=== PATIENT | female | born 1945 | race Caucasian/White ===

== ENCOUNTER 2016-06-28 10:58 | Outpatient (CLI) | payer MEDICARE ==
[2016-06-28 12:09] LABS: #Basophils 0.1 thou/uL (0.0-0.2); #Eosinphils 0.2 thou/uL (0.0-0.7); #Lymphocytes 1.6 thou/uL (1.20-3.40); #Monocytes 0.4 thou/uL (0.11-0.59); #Neutrophils 3.5 thou/uL (1.40-6.50); %Basophils 1.2 % (0.0-1.0); %Eosinophils 3.6 % (0.0-10.0); %Lymphocytes 27.2 % (21.0-51.0); %Monocytes 6.6 % (0.0-10.0); %Neutrophils 61.3 % (42.0-75.0); Hemoglobin 13.1 g/dL (12.0-16.0); Mean Corpuscular HGB CONC 31.7 g/dL (32.0-36.0); Mean Corpuscular Hemoglobin 30.2 pg (27.0-31.0); Mean Corpuscular Volume 95.3 fl (81.0-99.0); Mean Platelet Volume 6.5 fL (7.4-10.4); Platelet Count 245 thou/uL (130-400); RBC Distribution Width 12.7 % (11.5-14.5); Red Blood Cell (RBC) Count 4.34 mill/uL (4.20-5.40); White Blood Cell (WBC) Count 5.7 thou/uL (4.8-10.8)
[2016-06-28 12:22] LABS: Hemoglobin A1c 11.3 % (4.0-6.0)
[2016-06-28 12:34] LABS: ALT (SGPT) 15 U/L (8-55); AST (SGOT) 14 U/L (5-34); Albumin 3.9 g/dL (3.4-4.8); Alkaline Phosphatase 74 U/L (40-150); Anion Gap 16 mmol/L (10-20); BUN (Urea Nitrogen) 17 mg/dL (9.8-20.1); Bilirubin, Direct 0.2 mg/dL (0.1-0.3); Bilirubin, Total 0.6 mg/dL (0.2-1.2); Calc. Creatinine Clearance 0 mL/min (70-130); Calcium 9.3 mg/dL (7.8-10.44); Carbon Dioxide 24 mmol/L (23-31); Cardiac Risk 4.3 (Less than 4.5); Chloride 104 mmol/L (98-107); Cholesterol 188 mg/dl (< 200 Desired); Estimated GFR-MDRD 53; Glucose 365 mg/dL (83-110); HDL Cholesterol 44 mg/dL (>60 Neg Risk); LDL Cholesterol, Calculated 120 mg/dL; Potassium 4.3 mmol/L (3.5-5.1); Protein, Total 7.5 g/dL (6.0-8.3); Sodium 140 mmol/L (136-145); Triglycerides 118 mg/dL (Less than 150)
[2016-06-29 16:19] LABS: Creatinine, Urine 122.42 mg/dL (47-110); Microalbumin Urine 1.3 mg/dL (0.5-50.0); Microalbumin/Creat Ratio 10.6 mg/g (Less than 30)
== END 2016-06-28 10:59 | disposition home or self-care (01) ==
LOC: NAV LAB 10:58
PROVIDERS: ATTEND Family Medicine
DX: E11.9 Type 2 diabetes mellitus without complications (principal); Z79.4 Long term (current) use of insulin; Z79.899 Other long term (current) drug therapy
CPT/HCPCS: 36415; 80048; 80061; 80076; 82043; 83036; 84443; 85025

== ENCOUNTER 2017-05-13 10:17 | Outpatient (CLI) | payer MEDICARE | END 2017-05-13 10:18 | disposition home or self-care (01) | LOC: NAV DTY OP 10:17 | PROVIDERS: ATTEND Family Medicine | DX: E11.9 Type 2 diabetes mellitus without complications (principal) | CPT/HCPCS: 97802 ==

== ENCOUNTER 2018-05-04 14:54 | Outpatient (CLI) | payer MEDICARE ==
--- NOTE | 2018-05-04 15:30 | RAD ---
RIGHT SHOULDER 3 VIEWS: Date: 05/04/18 HISTORY: Pain right shoulder. FINDINGS: There are degenerative changes present. Mild spurring from the humeral head and spurring from the AC joint. No fracture or dislocation. IMPRESSION: Mild degenerative changes at the shoulder. No acute process. POS: TAPAN
== END 2018-05-04 14:55 | disposition home or self-care (01) ==
LOC: NAV RAD 14:54
PROVIDERS: ATTEND Family Medicine
DX: M25.511 Pain in right shoulder (principal); M19.011 Primary osteoarthritis, right shoulder

== ENCOUNTER 2019-04-28 14:49 | Inpatient (IN) | payer MEDICARE ==
[2019-04-28] MEDS ORDERED: traMADol HCl 50 MG TAB PO SCH (16:30)
[2019-04-28] MEDS ORDERED: Acetaminophen 500 MG TAB PO SCH (16:30)
[2019-04-28] MEDS: Gabapentin 300 MG CAP PO SCH (20:59)
--- NOTE | 2019-04-28 21:17 | HP ---
HISTORY OF PRESENT ILLNESS: Ms. Joyner is a very pleasant 74-year-old white female, who presented to the emergency room at [facility] with abdominal pain. She was admitted to the hospital, seen in consultation by Dr. Jonah Quevedo, and unfortunately had a small bowel obstruction. It did not clear with small bowel run through and she ended up going to the surgical suite. Dr. Quevedo removed 55 cm to 25 inches of small bowel. Anastomosis was accomplished well, but postoperatively, she had a prolonged ileus. She finally has started passing gas and being able to tolerate some food. She is extremely weak and barely gets up and moves at this time. Previously, she was very active and would walk as far she needed to walk for anything. It was felt that she would significantly benefit from inpatient Physical Therapy and Occupational Therapy, so she was transferred to [facility] for therapy. PAST MEDICAL HISTORY: Reveals the patient has, 1. Diabetes. 2. Ulcerative colitis with J-pouch. 3. Psoriasis. 4. 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 5. Peripheral neuropathy. 6. Anxiety and depressive disorder. 7. Arthritis. 8. Allergic rhinitis. 9. Hypertension. 10. Chronic kidney disease, stage 3. 11. Anemia of chronic disease. PAST SURGICAL HISTORY: 1. Recent removal of 55 cm small bowel by Dr. Jonah Quevedo. 2. Tonsillectomy in 1947. 3. Hysterectomy in 1981. 4. Abdominoplasty with lysis of adhesions in 1991. 5. Abdominal colectomy with J-pouch placement in 1995. 6. Cholecystectomy in 2014. 7. Left ring finger Dupuytren's contracture in 2016. 8. Breast biopsy with lumpectomy secondary to breast cancer on 09/16/2016. FAMILY HISTORY: Reveals the patient's father at age 77 of an aneurysm. The patient's mother at age 84, breast cancer and COPD. The patient has an older brother, who has unmanaged diabetes. Also has a history of prostate cancer. The patient has a sibling, who has suspected bipolar. Maternal grandmother had breast cancer. SOCIAL HISTORY: Reveals the patient quit smoking in 1980. She has smoked 2 packs a day for several years, but then quit. The patient does not drink. ALLERGIES: REVEALS THE PATIENT IS ALLERGIC TO PENICILLIN AND DEMEROL. PRESENT MEDICATIONS: 1. The patient is on lisinopril 40 mg daily. 2. The patient is on hydrochlorothiazide 25 mg daily. 3. The patient takes Lantus 16 to 20 units, but presently is off because she has been hypoglycemic. 4. The patient is on metformin extended release 500 mg with breakfast and 1000 mg at supper. 5. The patient is on pioglitazone 75 mg daily. 6. Gabapentin 300 mg at bedtime. 7. Anastrozole 1 mg daily. 8. Pristiq 50 mg extended release daily. 9. Acitretin 10 mg with meals daily. 10. Naproxen one with breakfast, one with supper. 11. Fluticasone nasal spray one or two sprays each nostril daily at bedtime. REVIEW OF SYSTEMS: CONSTITUTIONAL: The patient denies any fever, chills, or night sweats. She denies any head problems including headaches, change in vision, or change in hearing. HEENT: The patient denies any significant rhinorrhea or facial tenderness. RESPIRATORY: The patient denies cough, cold, congestion, hemoptysis, or any productive sputum or cough. CARDIOVASCULAR: The patient denies PND, edema, dyspnea on exertion, chest pain, orthopnea, or claudication. GI: The patient denies nausea, vomiting, or diarrhea, but admits to slight bloody stools, she was obstructed. The patient has no colon left due to colectomy for her ulcerative colitis. : The patient denies urgency, frequency, dysuria, or incontinence. MUSCULOSKELETAL: The patient admits to weakness, but no significant joint swelling, joint pain, or significant stiffness. SKIN: The patient denies skin lesions, or jaundice or any skin rashes. PSYCHIATRIC: The patient has had quite a bit of stress. Has had a history of anxiety and depressive disorder. PHYSICAL EXAMINATION: GENERAL: This is a well-developed, well-nourished, very pleasant 74-year-old white female, in no apparent distress at this time. HEENT: Reveals normocephalic and nontraumatic cranium. The pupils are equally round and reactive. Extraocular movements are intact. Nose and throat are slightly dry, but clear. NECK: Supple without masses, nodes, or bruits. CHEST: Clear to auscultation. No rales, rhonchi, wheezes, or cough is noted. HEART: Reveals a regular rate and rhythm with a 1/6 systolic murmur. ABDOMEN: Obese, soft, nontender without organomegaly. Normal bowel sounds are noted in all 4 quadrants. No rebound or guarding is noted. Midline incision is noted with a wound VAC in place, which is very small. GENITOURINARY: Deferred. EXTREMITIES: Reveal no clubbing or cyanosis with minimal trace edema. NEUROLOGIC: The patient has no focal deficits. ASSESSMENT: 1. Status post small bowel obstruction and status post removal of 25 inches of small intestines with end-to-end anastomosis by Dr. Jonah Quevedo. 2. Diabetes type 2, which has been fluctuating. 3. Hypertension, which has been fluctuating. 4. Diabetic neuropathy. 5. Diabetic nephropathy. 6. Chronic kidney disease, stage 3. 7. History of infiltrating ductal carcinoma supposedly in remission. 8. Poor appetite. 9. Slightly dehydrated. 10. Prolonged ileus, which is much improved. 11. Ulcerative colitis with J-pouch. 12. Anemia of chronic disease. PLAN: 1. The patient is admitted to [facility] for physical therapy and occupational therapy. 2. We will aggressively try to control her diabetes. 3. We will continue to monitor her blood pressure closely and adjust medications as needed. 4. We will encourage the patient to eat well. 5. The patient will be able to walk 300 to 500 feet prior to being discharged. Job ID: [id number]
[2019-04-29] MEDS ORDERED: Ondansetron ODT 4 MG TAB PO PRN (01:37)
[2019-04-29 05:39] LABS: #Basophils 0.1 thou/uL (0.0-0.2); #Eosinphils 0.1 thou/uL (0.0-0.7); #Monocytes 0.5 thou/uL (0.11-0.59); #Neutrophils 3.6 thou/uL (1.40-6.50); %Basophils 1.7 % (0.0-1.0); %Eosinophils 1.4 % (0.0-10.0); %Lymphocytes 19.5 % (21.0-51.0); %Monocytes 9.6 % (0.0-10.0); %Neutrophils 67.8 % (42.0-75.0); Hemoglobin 7.4 g/dL (12.0-16.0); Mean Corpuscular HGB CONC 31.5 g/dL (32.0-36.0); Mean Corpuscular Hemoglobin 30.8 pg (27.0-31.0); Mean Corpuscular Volume 97.9 fL (78.0-98.0); Mean Platelet Volume 6.7 fL (7.4-10.4); Platelet Count 453 thou/uL (130-400); RBC Distribution Width 15.1 % (11.5-14.5); Red Blood Cell (RBC) Count 2.39 mill/uL (4.20-5.40); White Blood Cell (WBC) Count 5.3 thou/uL (4.8-10.8)
[2019-04-29 05:55] LABS: ALT (SGPT) 15 U/L (8-55); AST (SGOT) 16 U/L (5-34); Albumin 2.7 g/dL (3.4-4.8); Alkaline Phosphatase 81 U/L (40-110); Anion Gap 12 mmol/L (10-20); BUN (Urea Nitrogen) 13 mg/dL (9.8-20.1); Bilirubin, Total 0.3 mg/dL (0.2-1.2); Calc. Creatinine Clearance 90 mL/min (70-130); Carbon Dioxide 28 mmol/L (23-31); Chloride 103 mmol/L (98-107); Estimated GFR-MDRD 76; Globulin 3.2 g/dL (2.4-3.5); Glucose 97 mg/dL (83-110); Potassium 4.1 mmol/L (3.5-5.1); Protein, Total 5.9 g/dL (6.0-8.3); Sodium 139 mmol/L (136-145)
[2019-04-29 06:11] LABS: Bilirubin Negative (Negative); Blood, Urine Trace (Negative); Clarity Clear (Clear); Glucose, Urine (Dipstick) Negative (Negative); Leukocyte Negative (Negative); Nitrite Negative (Negative); Protein, Urine (Dipstick) Negative (Neg-Trace); Urobilinogen 0.2 mg/dL (Less than 2)
[2019-04-29 06:44] LABS: Bacteria/HPF None Seen HPF (None Seen); RBC/HPF 0-3 HPF (0-3); Squamous Epithelial 0-3 HPF (0-3); WBC/HPF None Seen HPF (0-3)
[2019-04-29] MEDS: Hydrochlorothiazide 25 MG TAB PO SCH (08:17)
[2019-04-29] MEDS: Anastrozole 1 MG TAB PO SCH (08:17)
[2019-04-29] MEDS: Lisinopril 20 MG TAB PO SCH (08:17)
[2019-04-29] MEDS: metFORMIN 500 MG TAB PO SCH ×5 (08:17→12:25)
[2019-04-29] MEDS: Venlafaxine HCl XR 75 MG CAP PO SCH (08:17)
[2019-04-29] MEDS: ACITRETIN 10 MG PO SCH (08:18)
[2019-04-29] MEDS: Pioglitazone HCl 15 MG TAB PO SCH (08:18)
[2019-04-29] MEDS: traMADol HCl 50 MG TAB PO PRN ×3 (08:55→23:34)
[2019-04-29] MEDS: Acetaminophen 500 MG TAB PO PRN ×3 (08:55→23:34)
[2019-04-29] MEDS: Mometasone Furoate 120 PUFF 220 MCG INH SCH (17:47)
[2019-04-29] MEDS: Gabapentin 300 MG CAP PO SCH (20:54)
--- NOTE | 2019-04-29 23:21 | PRG ---
DATE OF SERVICE: 04/29/2019 SUBJECTIVE: Ms. Joyner is a very pleasant 74-year-old white female, who presented to the emergency room at [facility] with abdominal pain. She has small bowel obstruction that did not resolve. She was taken to the surgical suite by Dr. Quevedo, who had to remove 55 cm, which is 25 inches of small bowel. Anastomosis was accomplished, she did well. Postoperatively, she had difficulty with prolonged ileus. She eventually resolved that but it took approximately a week and a half. She now is extremely weak and barely able to walk and transfer to inpatient Physical Therapy and Occupational Therapy at [facility]. OBJECTIVE: VITAL SIGNS: Today reveal blood pressure this morning was 129/81, pulse 90, respirations 16, O2 saturation 90% to 91% on room air, and T-max 98.6. LABORATORY DATA: Today reveals sugar of 105 fasting, 166 before lunch, 155 before supper, 200 before bedtime. PHYSICAL EXAMINATION: GENERAL: This is a well-developed, well-nourished, slightly obese white female, in no apparent distress at this time. HEENT: Reveals normocephalic and nontraumatic cranium. Pupils are equal, round, and reactive. Extraocular movements are intact. Nose and throat are slightly dry. NECK: Supple without masses, nodes, or bruits. CHEST: Clear to auscultation. No rales, rhonchi, or wheezes are heard. HEART: Reveals a regular rate and rhythm without murmurs, gallops, or rubs. ABDOMEN: Soft, nontender without organomegaly. Normal bowel sounds are noted in all 4 quadrants. No rebound or guarding is noted. Midline incision still looks good. Wound VAC still in place. GENITOURINARY: Deferred. EXTREMITIES: Reveal no clubbing, cyanosis, or edema with normal trace edema. NEUROLOGIC: The patient has no focal deficits. ASSESSMENT: 1. Small-bowel obstruction status post removal of 25 inches with end-to-end anastomosis done by Dr. Jonah Quevedo. 2. Hypertension. 3. Diabetes type 2. 4. Diabetic neuropathy. 5. Diabetic nephropathy. 6. Chronic kidney disease, stage 3. 7. History of infiltrating ductal carcinoma supposedly in remission. 8. Poor appetite. 9. Slightly dehydrated. 10. Prolonged ileus, which has now improved. 11. Ulcerative colitis with J pouch. 12. Anemia of chronic disease. 13. Generalized weakness. PLAN: 1. The patient is admitted to [facility] for continued physical therapy and occupational therapy. 2. Continue to monitor the patient's blood pressure closely. 3. Continue to monitor the patient's diabetes with Accu-Cheks a.c. and at bedtime. 4. Encourage the patient to eat well. 5. Stress ulcer prophylaxis. 6. Decubitus precautions. 7. DVT prophylaxis per Primary Service. 8. Physical therapy and occupational therapy to be continued. Job ID: [id number]
[2019-04-30] MEDS: traMADol HCl 50 MG TAB PO PRN ×4 (05:33→21:40)
[2019-04-30] MEDS: Acetaminophen 500 MG TAB PO PRN ×4 (05:34→21:40)
[2019-04-30] MEDS: Hydrochlorothiazide 25 MG TAB PO SCH (08:58)
[2019-04-30] MEDS: Pioglitazone HCl 15 MG TAB PO SCH (08:58)
[2019-04-30] MEDS: Anastrozole 1 MG TAB PO SCH (08:58)
[2019-04-30] MEDS: Venlafaxine HCl XR 75 MG CAP PO SCH (08:58)
[2019-04-30] MEDS: Lisinopril 20 MG TAB PO SCH (08:59)
[2019-04-30] MEDS: metFORMIN 500 MG TAB PO SCH ×2 (09:02→11:27)
[2019-04-30] MEDS: ACITRETIN 10 MG PO SCH (14:13)
[2019-04-30] MEDS: Gabapentin 300 MG CAP PO SCH (21:40)
[2019-04-30] MEDS: Mometasone Furoate 120 PUFF 220 MCG INH SCH (21:41)
[2019-05-01] MEDS: Venlafaxine HCl XR 75 MG CAP PO SCH (08:52)
[2019-05-01] MEDS: Anastrozole 1 MG TAB PO SCH (08:52)
[2019-05-01] MEDS: Pioglitazone HCl 15 MG TAB PO SCH (08:52)
[2019-05-01] MEDS: Acetaminophen 500 MG TAB PO PRN ×2 (08:52→21:02)
[2019-05-01] MEDS: metFORMIN 500 MG TAB PO SCH ×2 (08:53→11:36)
[2019-05-01] MEDS: Lisinopril 20 MG TAB PO SCH (08:53)
[2019-05-01] MEDS: Hydrochlorothiazide 25 MG TAB PO SCH (08:53)
[2019-05-01] MEDS: traMADol HCl 50 MG TAB PO PRN ×2 (08:54→21:02)
[2019-05-01] MEDS: ACITRETIN 10 MG PO SCH (09:03)
[2019-05-01] MEDS: Mometasone Furoate 120 PUFF 220 MCG INH SCH (19:24)
[2019-05-01] MEDS: Gabapentin 300 MG CAP PO SCH (21:02)
[2019-05-02 05:46] LABS: ALT (SGPT) 11 U/L (8-55); AST (SGOT) 15 U/L (5-34); Alkaline Phosphatase 77 U/L (40-110); Anion Gap 14 mmol/L (10-20); BUN (Urea Nitrogen) 11 mg/dL (9.8-20.1); Bilirubin, Total 0.2 mg/dL (0.2-1.2); Calc. Creatinine Clearance 90 mL/min (70-130); Calcium 8.5 mg/dL (7.8-10.44); Carbon Dioxide 30 mmol/L (23-31); Chloride 100 mmol/L (98-107); Estimated GFR-MDRD 74; Globulin 3.3 g/dL (2.4-3.5); Glucose 126 mg/dL (83-110); Potassium 3.8 mmol/L (3.5-5.1); Protein, Total 6.3 g/dL (6.0-8.3); Sodium 140 mmol/L (136-145)
[2019-05-02 05:49] LABS: #Basophils 0.1 thou/uL (0.0-0.2); #Eosinphils 0.1 thou/uL (0.0-0.7); #Lymphocytes 1.2 thou/uL (1.20-3.40); #Monocytes 0.6 thou/uL (0.11-0.59); %Basophils 2.6 % (0.0-1.0); %Lymphocytes 22.9 % (21.0-51.0); %Monocytes 12.5 % (0.0-10.0); Hemoglobin 8.1 g/dL (12.0-16.0); Mean Corpuscular Hemoglobin 31.3 pg (27.0-31.0); Mean Platelet Volume 6.5 fL (7.4-10.4); Platelet Count 458 thou/uL (130-400); RBC Distribution Width 14.4 % (11.5-14.5); Red Blood Cell (RBC) Count 2.59 mill/uL (4.20-5.40); White Blood Cell (WBC) Count 5.1 thou/uL (4.8-10.8)
--- NOTE | 2019-05-02 06:56 | PRG ---
DATE OF SERVICE: 05/01/2019 Patient of Senthil Kayleigh Gunn. SUBJECTIVE: The patient is a very pleasant 74-year-old white female, status post recent small bowel obstruction requiring surgical removal of large amount of small bowel with complications of postoperative ileus and significant deconditioning and malnutrition. She is doing much better now and in [facility], is eating well and states she has no complaints. Feels she is getting stronger with minimal abdominal pain. OBJECTIVE: VITAL SIGNS: Temperature is 99.1, pulse is 83, respirations are 20, O2 saturation is 97% on room air, blood pressure is 144/67. LUNGS: Clear. CARDIAC: Shows regular rhythm. ABDOMEN: Soft with minimal tenderness. SKIN AND EXTREMITIES: Showed no edema. LABORATORY DATA: Most recent laboratory showed hemoglobin of 7.4, white count of 5300. Accu-Cheks have remained stable at 122 to 178. ASSESSMENT: 1. Resolving postoperative ileus, status post small bowel resection with end-to-end anastomosis for small bowel obstruction. 2. Hypertension, controlled to goal. 3. Type 2 diabetes, controlled to goal. 4. Chronic kidney disease, stage 3 with most recent creatinine 0.75 and GFR 76. 5. History of ulcerative colitis with J-pouch. 6. History of anemia of chronic disease. PLAN: 1. Continue PT, OT. 2. Repeat labs in the a.m. 3. Encourage the patient to eat well. She states she is doing much better. 4. Continue stress ulcer prophylaxis and DVT prophylaxis. Job ID: [id number]
[2019-05-02] MEDS: Anastrozole 1 MG TAB PO SCH (08:51)
[2019-05-02] MEDS: Hydrochlorothiazide 25 MG TAB PO SCH (08:52)
[2019-05-02] MEDS: Venlafaxine HCl XR 75 MG CAP PO SCH (08:52)
[2019-05-02] MEDS: metFORMIN 500 MG TAB PO SCH ×2 (08:52→12:07)
[2019-05-02] MEDS: Pioglitazone HCl 15 MG TAB PO SCH (08:52)
[2019-05-02] MEDS: Lisinopril 20 MG TAB PO SCH (08:53)
[2019-05-02] MEDS: ACITRETIN 10 MG PO SCH (11:02)
--- NOTE | 2019-05-02 19:01 | PRG ---
DATE OF SERVICE: 05/02/[address] Carmine Gunn. SUBJECTIVE: The patient feels well and up to the bathroom, having minimal abdominal pain. She is eating well. OBJECTIVE: VITAL SIGNS: Blood pressure is 142/76, temperature is 98, pulse 80, respirations 18, O2 sats 94% on room air. LUNGS: Clear. CARDIAC: Regular rhythm. ABDOMEN: Soft, nontender. Midline incision is healing well with wound VAC in place. SKIN/EXTREMITIES: No edema. LABORATORY DATA: White count 5100, hematocrit 25, hemoglobin 8.1. Sodium 140, potassium 3.8, chloride 100, bicarb 30, BUN 11, creatinine 0.76, glucose 126, calcium 8.5. Accu-Cheks 158 and 204, albumin 3.0, which is up from 2.7 two days previously. ASSESSMENT: 1. Resolving small-bowel obstruction and partial removal 25 inches with small intestine and end-to-end anastomosis, healing well. 2. Type 2 diabetes. Fair control with Accu-Cheks ranging from 158 to 186. 3. Malnutrition, improving slowly. 4. Deconditioning, improving steadily. 5. Ulcerative colitis, asymptomatic. 6. Hypertension, fluctuating. 7. resolved. PLAN: 1. Continue PT and OT. 2. Continue wound care. 3. Continue Accu-Cheks to monitor and titrate and control diabetes. 4. Continue to monitor her blood pressure fluctuating. Job ID: [id number]
[2019-05-02] MEDS: traMADol HCl 50 MG TAB PO PRN (20:59)
[2019-05-02] MEDS: Gabapentin 300 MG CAP PO SCH (20:59)
[2019-05-02] MEDS: Acetaminophen 500 MG TAB PO PRN (20:59)
[2019-05-02] MEDS: Mometasone Furoate 120 PUFF 220 MCG INH SCH (21:02)
[2019-05-03] MEDS: Venlafaxine HCl XR 75 MG CAP PO SCH (08:36)
[2019-05-03] MEDS: Anastrozole 1 MG TAB PO SCH (08:36)
[2019-05-03] MEDS: Hydrochlorothiazide 25 MG TAB PO SCH (08:36)
[2019-05-03] MEDS: metFORMIN 500 MG TAB PO SCH ×2 (08:36→11:25)
[2019-05-03] MEDS: Lisinopril 20 MG TAB PO SCH (08:36)
[2019-05-03] MEDS: Pioglitazone HCl 15 MG TAB PO SCH (08:37)
[2019-05-03] MEDS ORDERED: metFORMIN 500 MG TAB PO SCH ×2 (09:42→09:45)
[2019-05-03] MEDS: ACITRETIN 10 MG PO SCH (11:00)
--- NOTE | 2019-05-03 17:51 | PRG ---
DATE OF SERVICE: 05/03/2019 SUBJECTIVE: Ms. Joyner is a very pleasant 74-year-old white female, who [facility]bowel [facility]. She was taken to the surgical suite by Dr. Quevedo to remove 55 cm and did an anastomosis. Postoperatively, she did well, but had a prolonged ileus. She eventually resolved this, but has had a problem with eating and is extremely weak. She was transferred to [facility] for physical therapy, occupational therapy, and pain management. OBJECTIVE: VITAL SIGNS: Reveal blood pressure 190/78, pulse 82, respirations 20, O2 saturation 94% to 96% on room air, T-max 98.2. GENERAL: This is a well-developed, well-nourished, very pleasant 74-year-old slightly obese white female, in no apparent distress at this time. HEENT: Reveals normocephalic and nontraumatic cranium. Pupils are equal, round, and reactive. Extraocular movements are intact. Nose and throat are slightly dry, but clear. NECK: Supple without masses, nodes, or bruits. CHEST: Clear to auscultation. No rales, rhonchi, or wheezes are heard. HEART: Reveals a regular rate and rhythm without murmurs, gallops, or rubs. ABDOMEN: Soft, nontender without any pain. Normal bowel sounds noted. No rebound or guarding is noted. Midline incision still looks good. Wound VAC has been replaced, still working well. GENITOURINARY: Deferred. EXTREMITIES: Reveal no clubbing, cyanosis, or edema. NEUROLOGIC: The patient has no focal deficits. LABORATORY DATA: Over the weekend revealed a hemoglobin of 8.1, hematocrit 25.3, with a platelet count of 458,000. Chemistry revealed a sodium of 140, potassium 3.8, BUN 11, creatinine 0.76. Sugar is 126. Liver enzymes normal at 15 AST and 11 ALT. ASSESSMENT: 1. Small-bowel obstruction, status post removal of 25 inches with an end-to-end anastomosis done by Dr. Jonah Quevedo. 2. Hypertension. 3. Diabetes type 2. 4. Diabetic neuropathy. 5. Wound VAC over abdominal incision. 6. Diabetic nephropathy. 7. Chronic kidney disease, stage 3. 8. Appetite much improved. 9. Slightly dehydrated. 10. Prolonged ileus, improved. 11. Ulcerative colitis with a J-pouch. 12. Anemia of chronic disease. 13. Generalized weakness. PLAN: 1. Continue physical therapy and occupational therapy. 2. Continue wound VAC until better healed. 3. Continue to monitor the patient's blood pressure closely. 4. Monitor the patient's diabetes with Accu-Cheks a.c. and at bedtime. 5. Continue to encourage the patient to eat well. 6. Stress ulcer prophylaxis. 7. Decubitus precautions. 8. DVT prophylaxis. 9. Physical therapy and occupational therapy. Job ID: [id number]
[2019-05-03] MEDS: traMADol HCl 50 MG TAB PO PRN (21:26)
[2019-05-03] MEDS: Gabapentin 300 MG CAP PO SCH (21:26)
[2019-05-03] MEDS: Acetaminophen 500 MG TAB PO PRN (21:27)
[2019-05-03] MEDS: Mometasone Furoate 120 PUFF 220 MCG INH SCH (23:48)
[2019-05-04] MEDS: Hydrochlorothiazide 25 MG TAB PO SCH (08:32)
[2019-05-04] MEDS: Venlafaxine HCl XR 75 MG CAP PO SCH (08:32)
[2019-05-04] MEDS: Anastrozole 1 MG TAB PO SCH (08:32)
[2019-05-04] MEDS: Lisinopril 20 MG TAB PO SCH (08:33)
[2019-05-04] MEDS: Pioglitazone HCl 15 MG TAB PO SCH (08:33)
[2019-05-04] MEDS: metFORMIN 500 MG TAB PO SCH ×2 (08:33→11:04)
[2019-05-04] MEDS: ACITRETIN 10 MG PO SCH (08:34)
--- NOTE | 2019-05-04 11:08 | PRG ---
DATE OF SERVICE: 05/04/2019 SUBJECTIVE: Ms. Joyner is a very pleasant 74-year-old white female, who presented to [facility] with a small bowel obstruction. Taken to the surgical suite by Dr. Quevedo and he took out 55 cm small intestine that had multiple adhesions and did an anastomosis. Postoperatively, she did well, but she had a prolonged ileus. She eventually was stabilized and was transferred to [facility] for PT and OT and Pain Management. Vital signs today reveal the patient's blood pressure has remained elevated in the last few days. It fluctuated from 146/64 to 190/78. We will start her on some amlodipine 5 mg every evening. PHYSICAL EXAMINATION: GENERAL: This is a well-developed, well-nourished, very pleasant white female, in no apparent distress at this time. HEENT: Reveals normocephalic and nontraumatic cranium. Pupils are equally round and reactive. Extraocular movements are intact. Nose and throat are slightly dry. NECK: Supple without masses, nodes, or bruits. CHEST: Clear to auscultation. No rales, rhonchi, or wheezes are heard. HEART: Reveals a regular rate and rhythm without murmurs, gallops, or rubs. Midline incision has wound VAC over it and working well. GENITOURINARY: Deferred. EXTREMITIES: Reveal no clubbing, cyanosis, or edema. NEUROLOGIC: The patient has no focal deficits. ASSESSMENT: 1. Small bowel obstruction, status post removal of 25 inches with an end-to-end anastomosis of the small bowel by Dr. Jonah Quevedo. 2. Diabetes type 2, stable. 3. Hypertension. 4. Diabetic neuropathy. 5. Wound VAC over abdominal incision. 6. Diabetic nephropathy. 7. Chronic kidney disease, stage 3. 8. Appetite, much improved. 9. Slightly dehydrated. 10. Prolonged ileus, resolved. 11. Ulcerative colitis with J-pouch. 12. Anemia of chronic disease. 13. Generalized weakness. PLAN: 1. Continue wound VAC until healed a little further. 2. Continue to monitor the patient's blood pressure closely. 3. Continue Accu-Cheks before meals and at bedtime. 4. Continue to encourage the patient to eat well. 5. Stress ulcer prophylaxis. 6. Decubitus precautions. 7. DVT prophylaxis. 8. Physical Therapy and Occupational Therapy. Job ID: [id number]
[2019-05-04] MEDS: Acetaminophen 500 MG TAB PO PRN (21:09)
[2019-05-04] MEDS: Gabapentin 300 MG CAP PO SCH (21:09)
[2019-05-04] MEDS: traMADol HCl 50 MG TAB PO PRN (21:09)
[2019-05-04] MEDS: Amlodipine 5 MG TAB PO SCH (21:09)
[2019-05-05] MEDS: Mometasone Furoate 120 PUFF 220 MCG INH SCH ×2 (01:25→17:58)
[2019-05-05] MEDS: Calcium Carbonate 500 MG ChewTAB PO PRN (03:55)
[2019-05-05] MEDS: Pioglitazone HCl 15 MG TAB PO SCH (09:01)
[2019-05-05] MEDS: Lisinopril 20 MG TAB PO SCH (09:01)
[2019-05-05] MEDS: Anastrozole 1 MG TAB PO SCH (09:02)
[2019-05-05] MEDS: Hydrochlorothiazide 25 MG TAB PO SCH (09:03)
[2019-05-05] MEDS: Venlafaxine HCl XR 75 MG CAP PO SCH (09:04)
[2019-05-05] MEDS: ACITRETIN 10 MG PO SCH (09:04)
[2019-05-05] MEDS: metFORMIN 500 MG TAB PO SCH ×2 (09:05→12:37)
--- NOTE | 2019-05-05 15:17 | PRG ---
DATE OF SERVICE: 05/05/2019 SUBJECTIVE: Ms. Joyner is a very pleasant 74-year-old white female, who presented to [facility] with a small bowel obstruction. She was taken to the surgical suite after several days of observation when it did clear by Dr. Jonah Quevedo. He took out 55 cm of small intestine, which had multiple adhesions. He did an end-to-end anastomosis and postoperatively she did well. She unfortunately had a prolonged ileus, spent 10-14 days in the hospital. She eventually stabilized, now transferred to [facility] for PT, OT, and pain management. OBJECTIVE: VITAL SIGNS: Today reveal blood pressure is better at 178/71, respirations 16, O2 saturation 95% on room air, T-max 99.0. PHYSICAL EXAMINATION: GENERAL: This is a well-developed, well-nourished, very pleasant 74-year-old white female, in no apparent distress at this time. HEENT: Reveals normocephalic and nontraumatic cranium. Pupils are equally, round, and reactive. Extraocular movements are intact. Nose and throat are slightly dry. NECK: Supple without masses, nodes, or bruits. CHEST: Clear to auscultation. No rales, rhonchi, wheezes are heard. HEART: Reveals a regular rate and rhythm without murmurs, gallops, or rubs. ABDOMEN: Soft, nontender without organomegaly. Normal bowel sounds are noted. No rebound or guarding is noted. Abdomen reveals midline incision well healed. Wound VAC was removed today. GENITOURINARY: Deferred. EXTREMITIES: Reveal no clubbing, cyanosis, or edema. NEUROLOGIC: The patient has no focal deficits. ASSESSMENT: 1. Small-bowel obstruction status post removal of 25 inches with an end-to-end anastomosis of the small bowel by Dr. Jonah Quevedo. 2. Hypertension. 3. Diabetes type 2. 4. Diabetic neuropathy. 5. Abdominal incision closed with wound vacuum assisted closure discontinued today. 6. Diabetic nephropathy. 7. Chronic kidney disease, stage 3. 8. Improved appetite. 9. Slightly dehydrated still. 10. Ileus, resolved. 11. Ulcerative colitis with J-pouch. 12. Anemia of chronic disease. 13. Generalized weakness. PLAN: 1. We will discontinue the patient's wound VAC today. 2. The patient is scheduled to be discharged on Friday afternoon after physical therapy and occupational therapy. 3. Continue to monitor the patient's blood pressure closely. 4. Continue to monitor the patient's diabetes with Accu-Cheks a.c. and at bedtime. 5. Encourage the patient to continue to eat a good diabetic diet. 6. Stress ulcer prophylaxis. 7. Decubitus precautions. 8. DVT prophylaxis. 9. Physical therapy and occupational therapy. Job ID: [id number]
[2019-05-05] MEDS: Acetaminophen 500 MG TAB PO PRN (22:18)
[2019-05-05] MEDS: Amlodipine 5 MG TAB PO SCH (22:19)
[2019-05-05] MEDS: Gabapentin 300 MG CAP PO SCH (22:19)
[2019-05-06] MEDS: Calcium Carbonate 500 MG ChewTAB PO PRN (00:08)
[2019-05-06] MEDS: Anastrozole 1 MG TAB PO SCH (09:44)
[2019-05-06] MEDS: Venlafaxine HCl XR 75 MG CAP PO SCH (09:44)
[2019-05-06] MEDS: Pioglitazone HCl 15 MG TAB PO SCH (09:44)
[2019-05-06] MEDS: Hydrochlorothiazide 25 MG TAB PO SCH (09:45)
[2019-05-06] MEDS: Lisinopril 20 MG TAB PO SCH (09:45)
[2019-05-06] MEDS: metFORMIN 500 MG TAB PO SCH ×2 (09:45→12:06)
[2019-05-06] MEDS: traMADol HCl 50 MG TAB PO PRN (09:47)
[2019-05-06] MEDS: ACITRETIN 10 MG PO SCH (09:47)
[2019-05-06] MEDS: Mometasone Furoate 120 PUFF 220 MCG INH SCH (17:35)
--- NOTE | 2019-05-06 18:03 | PRG ---
DATE OF SERVICE: 05/06/2019 SUBJECTIVE: Ms. Joyner is a 74-year-old white female, who presented to [facility] with a small bowel obstruction. She was taken to surgical suite after several days of observation and had to have an exploratory laparotomy. The patient was taken to surgical suite by Dr. Quevedo and he took out 55 cm of small intestines and had multiple adhesions. Postoperatively, she did well except she had a prolonged ileus. She has been 10 to 14 more days in that hospital, now was transferred to [facility] for PT, OT, and pain management. OBJECTIVE: VITAL SIGNS: Reveal blood pressure this morning was 143/63, pulse 73 to 85, respirations 18, O2 saturation 94% to 97% on room air. HEENT: Normocephalic and nontraumatic cranium. Pupils are equally round and reactive. Extraocular movements are intact. Nose and throat are slightly dry. NECK: Supple without masses, nodes, or bruits. CHEST: Clear to auscultation. No rales, rhonchi, wheezes are heard. HEART: Reveals a regular rate and rhythm without murmurs, gallops, or rubs. ABDOMEN: Soft, nontender without organomegaly. Normal bowel sounds are noted in all 4 quadrants. Midline incision reveals continued healing. Wound VAC was removed yesterday and is doing well. GENITOURINARY: Deferred. EXTREMITIES: Reveal no clubbing, cyanosis, or edema. NEUROLOGIC: The patient has no focal deficits. ASSESSMENT: 1. Small-bowel obstruction, status post removal of 25 inches with the end-to-end anastomosis of small bowel by Dr. Jonah Quevedo. 2. Secondary intention healing with prior wound VAC. Wound VAC was removed yesterday and is doing well. 3. Hypertension. 4. Diabetes type 2. 5. Diabetic neuropathy. 6. Diabetic nephropathy. 7. Chronic kidney disease stage 3. 8. Improved appetite. 9. Slightly dehydrated still. 10. Ileus, resolved. 11. Ulcerative colitis with J-pouch. 12. Anemia of chronic disease. 13. Generalized weakness. PLAN: 1. The patient is doing very well and will be discharged tomorrow afternoon. 2. The wound VAC has been stopped. 3. The patient is scheduled for discharge and she will continue most likely physical therapy. 4. Continue to monitor the patient's blood pressure closely. 5. Continue to monitor the patient's diabetes with Accu-Cheks a.c. and at bedtime. 6. Encourage the patient to continue to eat a good diabetic diet. 7. Stress ulcer prophylaxis. 8. Decubitus precautions. 9. DVT prophylaxis. 10. Physical therapy and occupational therapy. Job ID: [id number]
[2019-05-06] MEDS: Amlodipine 5 MG TAB PO SCH (21:00)
[2019-05-06] MEDS: Gabapentin 300 MG CAP PO SCH (21:00)
[2019-05-07 09:25] VITALS: TEMP 97.2
[2019-05-07] MEDS: metFORMIN 500 MG TAB PO SCH ×2 (09:38→12:44)
[2019-05-07] MEDS: Pioglitazone HCl 15 MG TAB PO SCH (09:38)
[2019-05-07] MEDS: Lisinopril 20 MG TAB PO SCH (09:38)
[2019-05-07] MEDS: Venlafaxine HCl XR 75 MG CAP PO SCH (09:38)
[2019-05-07] MEDS: Hydrochlorothiazide 25 MG TAB PO SCH (09:39)
[2019-05-07] MEDS: Anastrozole 1 MG TAB PO SCH (09:39)
[2019-05-07] MEDS: ACITRETIN 10 MG PO SCH (09:40)
[2019-05-07] MEDS: Mometasone Furoate 120 PUFF 220 MCG INH SCH (12:45)
[2019-05-07 13:18] VITALS: BP 137/54
--- NOTE | 2019-05-07 16:48 | DIS ---
DATE OF ADMISSION: 04/28/2019 DATE OF DISCHARGE: 05/07/2019 HOSPITAL COURSE: Ms. Joyner is a very pleasant 74-year-old white female, who presented emergency room [facility] with abdominal pain. She has been to the hospital. She was seen by Dr. Jonah Quevedo, and unfortunately had a small bowel obstruction. After several days, this started clear and she ended up going to the surgical suite, where he removed 55 cm small bowel. She had end-to-end anastomosis, but postoperatively, she had prolonged ileus. She eventually started passing gas, tolerating food, and was transferred to [facility] for physical therapy, occupational therapy, and wound care. The patient states she is doing much better. She has done much better with her physical therapy and occupational therapy and her wound VAC is also. She is ready for discharge today. OBJECTIVE: VITAL SIGNS: Today blood pressure 141/63, pulse 85 to 89, respirations 18, O2 saturation 95% on room air, T-max 97.2. GENERAL: This is a well-developed, well-nourished, white female, in no apparent distress at this time. HEENT: Normocephalic and nontraumatic cranium. Pupils are equally round and reactive. Extraocular movements are intact. Nose and throat are slightly dry. NECK: Supple without masses, nodes, or bruits. CHEST: Clear to auscultation. No rales, rhonchi, wheezes are heard. HEART: Regular rate and rhythm without murmurs, gallops, or rubs. ABDOMEN: Soft, nontender without organomegaly. Normal bowel sounds are noted. Midline incision is clean and dry. Wound VAC has been removed. GENITOURINARY: Deferred. EXTREMITIES: No clubbing, cyanosis, or edema. PICC line in the right upper extremity has been removed. NEUROLOGIC: The patient has no focal deficits. DISCHARGE MEDICATIONS: 1. Gabapentin 300 mg at bedtime. 2. Pristiq 50 mg daily. 3. Anastrozole 1 mg daily. 4. Acitretin 10mg daily. 5. Hydrochlorothiazide 25 mg daily. 6. Lisinopril 40 mg daily. 7. Metformin 1000 mg b.i.d. with meals, which is a new dose of her medications. 8. Pioglitazone 45 mg daily. 9. Amlodipine 5 mg every evening. 10. The patient will have Home Health at home to do a wound care and for continued physical therapy. ASSESSMENT: 1. Status post small bowel obstruction, status post removal of 55 cm small bowel intestine with end-to-end anastomosis by Dr. Jonah Quevedo. 2. Diabetes, type 2, which has been fluctuating, but much better. 3. Hypertension, which is better controlled with the addition of Norvasc 5 mg daily. 4. Diabetic neuropathy. 5. Diabetic nephropathy. 6. Chronic kidney disease, stage 3. 7. History of infiltrating ductal carcinoma, supposedly in remission of the breast. 8. Poor appetite. 9. Slightly dehydrated. 10. Prolonged ileus, resolved. 11. Ulcerative colitis with J-pouch. 12. Anemia of chronic disease. 13. Generalized weakness. PLAN: 1. The patient is ready for discharge. 2. The patient will have Home Health that will come by and do her wound dressings. 3. The patient will continue her present medications. 4. The patient will continue to follow her sugar diabetes at home closely. 5. The patient will continue to check her blood pressure closely also. 6. The patient will see me in a week or two. 7. The patient will continue with physical therapy, occupational therapy, and wound care from Home Health. Job ID: [id number]
--- NOTE | 2019-05-10 11:34 | PQF ---
Nichelle Joyner C. HENRY MD [id number] CLINICAL DOCUMENTATION CLARIFICATION FORM: POST DISCHARGE Addendum to original discharge summary date: ____ Late entry note date: __ Date:05/10/2019 ATTN:Senthil ROWE MD Please exercise your independent, professional judgment in responding to the clarification form. Clinical indicators are provided on the bottom of this form for your review Please check appropriate box(s): [ ] Mild protein Calorie Malnutrition [ ] Moderate protein Calorie Malnutrition [ ] Severe protein Calorie Malnutrition [ ] Other diagnosis [ ] Unable to determine In addition, please specify: Present on Admission (POA): [ ] Yes [ ] No [ ] Unable to determine CLINICAL INDICATORS - SIGNS / SYMPTOMS / LABS Poor appetite-Documented in progress note on 04/28 by gerardo rowe MD Status post recent small bowel obstruction requiring surgical removal of large amount of small bowel with complications of postoperative ileus and significant deconditioning and malnutrition -Documented in progress note on 05/06 by Darren Archuleta MD BMI-0.1 Slightly dehydration-Documented in Discharge summary report on 05/06 by Gerardo Rowe MD prolonged Ileus resolved -Documented in progress note on 05/06 by Darren Archuleta MD History of infiltrating ductal carcinoma , supposed in remission of the breast - Documented in progress note on 05/06 by Darren Archuleta MD RISK FACTORS Ulcerative colitis with J-pouch -Documented in progress note on 05/06 by Darren Archuleta MD Status post recent small bowel obstruction requiring surgical removal of large amount of small bowel with complications of postoperative ileus and significant deconditioning and malnutrition -Documented in progress note on 05/06 by Darren Archuleta MD TREATMENT: Encourage the patient to eat well -Documented in progress note on 05/02 by Darren Archuleta MD Encourage the patient to continue to eat a good diabetic diet-Documented in progress note on 05/05 by gerardo rowe MD Moderate Malnutrition (in acute illness) Energy Intake: <75% of estimated energy requirement for > 7 days Weight Loss: 1-2%/1 week; 5%/ 1 month; 7.5%/3 months Other: mild body fat loss; mild muscle mass loss; mild fluid accumulation; Severe Malnutrition (in acute illness) Energy Intake: < 50% of estimated energy requirement for > 5 days Weight Loss: >1-2%/1 week; >5%/1 month; >7.5%/3 months Other: moderate body fat loss; moderate muscle mass loss; moderate- severe fluid accumulation; measurably reduced o and m supervisor strength Moderate Malnutrition (in chronic illness) Energy Intake: <75% of estimated energy requirement for >1 month Weight Loss: 5%/1 month; 7.5%/3 months; 10%/6 months; 20%/1 year Other: mild body fat loss; mild muscle mass loss; mild fluid accumulation Severe Malnutrition (in chronic illness) Energy Intake: <75% of estimated energy requirement for >1 month Weight Loss: >5%/1 month; >7.5%/3 months; >10%/6 months; >20%/1 year Other: severe body fat loss; severe muscle mass loss; severe fluid accumulation ; measurably reduced o and m supervisor strength [employer] (This form is maintained as a part of the permanent medical record) 2014 [email or web address]. All Rights Reserved Javy [email or web address] [phone] [email or web address]
== END 2019-05-07 16:56 | disposition home health service (06) | DRG 949 ==
LOC: NAV ACUTE 14:49
PROVIDERS: ADMIT Family Medicine; ATTEND Family Medicine
DX: Z48.815 Encounter for surgical aftercare following surgery on the digestive system (principal); Z68.1 Body mass index [BMI] 19.9 or less, adult; K51.90 Ulcerative colitis, unspecified, without complications; K56.7 Ileus, unspecified; E46 Unspecified protein-calorie malnutrition; R53.1 Weakness; I12.9 Hypertensive chronic kidney disease with stage 1 through stage 4 chronic kidney disease, or unspecified chronic kidney disease; E11.22 Type 2 diabetes mellitus with diabetic chronic kidney disease; N18.3 Chronic kidney disease, stage 3 (moderate); E11.21 Type 2 diabetes mellitus with diabetic nephropathy; Z85.3 Personal history of malignant neoplasm of breast; D63.1 Anemia in chronic kidney disease; E86.0 Dehydration; Z93.3 Colostomy status; F41.9 Anxiety disorder, unspecified; F32.9 Major depressive disorder, single episode, unspecified; E11.40 Type 2 diabetes mellitus with diabetic neuropathy, unspecified; M19.90 Unspecified osteoarthritis, unspecified site; Z88.5 Allergy status to narcotic agent; Z88.0 Allergy status to penicillin; Z90.49 Acquired absence of other specified parts of digestive tract; Z90.710 Acquired absence of both cervix and uterus; Z98.890 Other specified postprocedural states; Z83.6 Family history of other diseases of the respiratory system; Z80.3 Family history of malignant neoplasm of breast
CPT/HCPCS: 36415; 36416; 80053; 81001; 85025; 97602; Q0162